=== PATIENT | male | born 1965 | race Caucasian/White ===

== ENCOUNTER 2018-11-29 18:18 | Inpatient (IN) | payer MEDICAID, OTHER ==
[~2018-11-29] VITALS: Ht 180.3 cm; Wt 70.9 kg
[~2018-11-29 18:18] MED LIST: FERR-89 PO; PALI234D IM; QUET200T PO; RANI150T7 PO
[2018-11-29] MEDS ORDERED: METO25 PO (18:45)
[2018-11-29] MEDS ORDERED: BACL10TA PO (18:45)
[2018-11-29 19:20] LABS: BASOPHILS % (AUTO) 0.5 % (0.0-2.0); EOSINOPHILS % (AUTO) 1.6 % (1.0-6.0); HEMATOCRIT 45.3 % (41-53); HEMOGLOBIN 15.4 g/dL (13.5-17.5); LYMPHOCYTES # (AUTO) 2.3 K/uL (1.0-4.8); LYMPHOCYTES % (AUTO) 17.1 % (22.0-44.0); MEAN CORPUSCULAR HEMOGLOBIN 33.2 pg (26.0-34.0); MEAN CORPUSCULAR VOLUME 98 fL (80-100); MONOCYTES # (AUTO) 0.9 K/uL (0.1-1.0); MONOCYTES % (AUTO) 6.5 % (2.0-9.0); NEUTROPHILS # (AUTO) 10.2 K/uL (1.8-7.7); NEUTROPHILS % (AUTO) 74.3 % (40.0-70.0); PLATELET COUNT (AUTO) 222 K/uL (150-450); RED BLOOD CELL COUNT(AUTO) 4.64 MIL/uL (4.50-5.90); RED CELL DISTRIBUTION WIDTH 13.7 % (11.5-14.5)
[2018-11-29 19:41] LABS: ANION GAP 10 mmol/L (8-16); CALCIUM, TOTAL 10.8 mg/dL (8.8-10.5); CARBON DIOXIDE 26 mmol/L (22-29); CHLORIDE 101 mmol/L (98-107); CREATININE 0.97 mg/dL (0.60-1.30); GLOMERULAR FILTR. RATE CALC > 60 mL/min (>60); GLUCOSE,RANDOM 107 mg/dL (70-110); POTASSIUM 4.3 mmol/L (3.5-5.1); SODIUM SERUM 137 mmol/L (136-145); UREA NITROGEN, BLOOD 31 mg/dL (7-18)
[2018-11-29 19:47] LABS: ALANINE AMINOTRANSFERASE 27 U/L (12-78); ALBUMIN 4.4 g/dL (3.4-5.0); ALKALINE PHOSPHATASE 84 U/L (46-116); ASPARTATE AMINOTRANSFERASE 25 U/L (15-37); BILIRUBIN,TOTAL 0.4 mg/dL (0.1-1.0)
[2018-11-29] MEDS ORDERED: LORazepam 2 MG TABLET PO ONE (20:30)
[2018-11-29] MEDS ORDERED: HALOPERIDOL 5 MG TABLET PO ONE (20:30)
[2018-11-29] MEDS ORDERED: DiphenhydrAMINE HCL 50 MG CAPSULE PO ONE (20:30)
[2018-11-29] MEDS ORDERED: HALOPERIDOL 5 MG TABLET PO PRN (21:00)
[2018-11-29] MEDS ORDERED: ZOLPIDEM TARTRATE 10 MG TABLET PO PRN (21:00)
[2018-11-29 21:11] LABS: AMPHET/METH SCREEN,URINE NEGATIVE (NEGATIVE); BARBITURATE SCREEN, URINE NEGATIVE (NEGATIVE); BENZODIAZEPINES SCREEN,URINE NEGATIVE (NEGATIVE); COCAINE SCREEN,URINE NEGATIVE (NEGATIVE); METHADONE SCREEN, URINE NEGATIVE (NEGATIVE); OPIATE SCREEN,URINE NEGATIVE (NEGATIVE)
[2018-11-29 21:21] LABS: PHENCYCLIDINE SCREEN,URINE NEGATIVE (NEGATIVE)
[2018-11-29 21:30] LABS: CANNABINOID SCREEN,URINE POSITIVE (NEGATIVE)
[2018-11-29] MEDS ORDERED: INFLUENZA VIRUS VACCINE QVS 2019-20 (3YR+)/PF 60 MCG/0.5 ML SYRINGE IM ONE (23:15)
[2018-11-29] MEDS ORDERED: PNEUMOCOCCAL VACCINE POLYVALENT 0.5 ML VIAL [PPSV23] IM ONE (23:15)
[2018-11-30 00:33] VITALS: BP 128/78
[2018-11-30 08:13] VITALS: BP 153/90
[2018-11-30] MEDS ORDERED: PETROLATUM,WHITE 28 GM JELLY TP PRN (13:45)
[2018-11-30] MEDS ORDERED: MAG HYDROX/AL HYDROX/SIMETH ES 30 ML SUSPENSION UDCUP PO PRN (13:45)
[2018-11-30] MEDS ORDERED: MAGNESIUM HYDROXIDE SUSPENSION 30 ML UDCUP PO PRN (13:45)
[2018-11-30] MEDS ORDERED: ACETAMINOPHEN 325 MG TABLET PO PRN (13:45)
[2018-11-30] MEDS ORDERED: ONDANSETRON HCL 4 MG TABLET PO PRN (13:45)
[2018-11-30] MEDS ORDERED: DOCUSATE SODIUM 100 MG CAPSULE PO PRN (13:45)
[2018-11-30] MEDS ORDERED: CloNIDine HCL 0.1 MG TABLET PO PRN (13:45)
[2018-11-30] MEDS ORDERED: NICOTINE 14 MG/24 HOUR PATCH TD PRN (13:45)
[2018-11-30] MEDS ORDERED: LOPERAMIDE HCL 2 MG CAPSULE PO PRN (13:45)
[2018-11-30] MEDS ORDERED: GuaiFENesin/D-METHORPHAN [SUGAR-FREE] 200-20MG/10 ML SYRUP UDCUP PO PRN (13:45)
[2018-11-30] MEDS ORDERED: ALBUTEROL SULFATE HFA 90 MCG/PUFF 8 GM INHALER IH PRN (13:45)
[2018-11-30] MEDS: FERROUS SULFATE 325 MG EC TABLET PO SCH (16:39)
[2018-11-30] MEDS: LORazepam 2 MG TABLET PO PRN (16:40)
[2018-11-30] MEDS: IBUPROFEN 400 MG TABLET PO PRN (16:40)
[2018-11-30 16:55] VITALS: BP 156/93
[2018-11-30] MEDS: OMEPRAZOLE 20 MG CAPSULE PO SCH (19:25)
[2018-11-30] MEDS: AmLODIPine BESYLATE 5 MG TABLET PO SCH (19:26)
[2018-11-30 20:26] VITALS: BP 131/78
[2018-11-30] MEDS: BACLOFEN 10 MG TABLET PO SCH (21:34)
[2018-12-01] MEDS: FERROUS SULFATE 325 MG EC TABLET PO SCH ×3 (06:39→16:22)
[2018-12-01 08:00] VITALS: BP 154/96
[2018-12-01] MEDS: OMEPRAZOLE 20 MG CAPSULE PO SCH (08:05)
[2018-12-01] MEDS: AmLODIPine BESYLATE 5 MG TABLET PO SCH (08:05)
[2018-12-01] MEDS: BACLOFEN 10 MG TABLET PO SCH ×2 (08:06→16:22)
[2018-12-01] MEDS ORDERED: AmLODIPine BESYLATE 5 MG TABLET PO SCH (09:00)
[2018-12-01] MEDS: OLANZapine 5 MG RAPDIS TABLET PO SCH ×2 (12:53→16:22)
[2018-12-01 16:00] VITALS: BP 146/95
[2018-12-01] MEDS: LORazepam 2 MG TABLET PO PRN (18:41)
[2018-12-02 01:05] VITALS: BP 139/87
[2018-12-02] MEDS: FERROUS SULFATE 325 MG EC TABLET PO SCH ×3 (06:12→16:08)
[2018-12-02 08:00] VITALS: BP 168/100
[2018-12-02] MEDS: AmLODIPine BESYLATE 5 MG TABLET PO SCH (08:09)
[2018-12-02] MEDS: OLANZapine 5 MG RAPDIS TABLET PO SCH ×2 (08:09→16:08)
[2018-12-02] MEDS: OMEPRAZOLE 20 MG CAPSULE PO SCH (08:09)
[2018-12-02] MEDS: BACLOFEN 10 MG TABLET PO SCH ×2 (08:10→16:08)
[2018-12-02] MEDS: LORazepam 2 MG TABLET PO PRN ×3 (08:34→21:34)
[2018-12-02 08:43] LABS: CHOL/HDL RATIO 3.1 (4.2-7.3)
[2018-12-02 10:02] VITALS: BP 150/87
[2018-12-02 16:06] VITALS: BP 146/90
[2018-12-02 21:35] VITALS: BP 154/89
[2018-12-02] MEDS: IBUPROFEN 400 MG TABLET PO PRN (21:35)
[2018-12-03 00:52] VITALS: BP 161/85
[2018-12-03] MEDS: FERROUS SULFATE 325 MG EC TABLET PO SCH ×2 (06:48→12:29)
[2018-12-03 08:04] VITALS: BP 133/84
[2018-12-03] MEDS: OMEPRAZOLE 20 MG CAPSULE PO SCH (08:30)
[2018-12-03] MEDS: AmLODIPine BESYLATE 5 MG TABLET PO SCH (08:30)
[2018-12-03] MEDS: OLANZapine 5 MG RAPDIS TABLET PO SCH (08:30)
[2018-12-03] MEDS: BACLOFEN 10 MG TABLET PO SCH (09:53)
[2018-12-03] MEDS ORDERED: OLAN5TAB40 PO (10:52)
== END 2018-12-03 15:00 | disposition home or self-care (01) | DRG 750 ==
LOC: EMS 18:18 → B2S 21:00 → B3A 22:47
PROVIDERS: ADMIT Psychiatry & Neurology Psychiatry; ATTEND Psychiatry & Neurology Psychiatry
PROC: 3E0234Z Introduction of Serum, Toxoid and Vaccine into Muscle, Percutaneous Approach (ICD-10-PCS; principal; 2018-12-02)
DX: F20.0 Paranoid schizophrenia (principal); R45.850 Homicidal ideations; R45.851 Suicidal ideations; D64.9 Anemia, unspecified; D72.829 Elevated white blood cell count, unspecified; F11.90 Opioid use, unspecified, uncomplicated; F17.210 Nicotine dependence, cigarettes, uncomplicated; I10 Essential (primary) hypertension; K21.9 Gastro-esophageal reflux disease without esophagitis; Z59.0 Homelessness; Z23 Encounter for immunization
CPT/HCPCS: 90686; 90732; 99406; G0480

== ENCOUNTER 2020-08-20 11:39 | Day surgery (SDC) | payer OTHER ==
[~2020-08-20] VITALS: Ht 180.3 cm; Wt 70.5 kg
[~2020-08-20 11:39] MED LIST changes: +BACL10TA PO; +OLAN5TAB94 PO; -PALI234D IM; -QUET200T PO; -RANI150T7 PO; +SODIUM CHLORIDE 0.9% 1,000 ML IV ONE; +SODIUM CHLORIDE 0.9% 1,000 ML ONE
[2020-08-20 12:34] LABS: COVID AG,FIA SOURCE NASOPHARYNGEAL
== END 2020-08-20 12:30 | disposition home or self-care (01) ==
LOC: SURGERY 11:39
PROVIDERS: ATTEND Internal Medicine Gastroenterology
DX: R10.9 Unspecified abdominal pain (principal); Z53.8 Procedure and treatment not carried out for other reasons; R14.0 Abdominal distension (gaseous); F31.9 Bipolar disorder, unspecified; K21.9 Gastro-esophageal reflux disease without esophagitis; F43.10 Post-traumatic stress disorder, unspecified; Z79.899 Other long term (current) drug therapy; Z98.890 Other specified postprocedural states
CPT/HCPCS: 87426; C9803; J7030